=== PATIENT | female | born 1985 | race Caucasian/White ===

== ENCOUNTER 2025-10-18 07:32 | Outpatient (REF) | payer OTHER, SELFPAY ==
--- OUTSIDE RECORDS SUMMARY | 2025-05-13 10:00 | XMS_ITS ---
Author Organization [facility] Address [address] [address] Care Team Providers Care Non Destructive Testing Technician Name Role Phone Dominga Bullard Unavailable Unavailable Goran Wilson Unavailable [phone] ALLERGIES No Known Allergies REASON FOR VISIT rt hand Encounters Encounter Location Date Provider Diagnosis [place] [address] [facility] [address] [place] [address] [address] [place] [address] 05/13/2025 Goran Wilson PLAN OF TREATMENT No Information Progress Notes * Examination Category Sub-Category Detail Notes Category Not es GENERAL EXAMINATION General appearance: Within normal limits Skin: Exam of upper extrem ities and lower extremeties are within normal limits Neurologic: grossly intact Orientation: Alert and Oriented x 3 (Time, Place, Person) Mood: Within normal limits Gait: Without significant limitation Vascular: Exam is grossly norm al
--- NOTE | ~2025-10-18 | US_ITS ---
CLINICAL HISTORY: Pelvic pain US pelvis transabdominal and transvaginal with color Doppler Comparison: None Findings: Transabdominal scanning performed for overall anatomy. Transvaginal scanning performed for additional detail. LMP: 2 weeks ago Anteverted uterus, normal size and echotexture, measuring 8.0 x 4.2 x 5.5 cm. Normal endometrium, measuring 6.0 mm thickness Uterine fibroids: Fundal intramural 1.5 x 1.4 x 1.4 cm The right ovary measures, 3.1 x 2.7 x 3.3 cm. Heterogeneous echotexture throughout the right ovary with internal flow. Consider a follow-up ultrasound in 6 or 12 weeks time. The left ovary measures, 5.6 x 4.7 x 4.8 cm. Probable physiologic cyst measuring 5.0 x 3.8 x 4.4 cm. No adnexal masses or fluid collections. No free fluid. Impression: 1. Intramural fundal fibroid. Normal thickness endometrium. 2. Heterogeneous echotexture of the right ovary with internal flow. Follow-up ultrasound in 6 or 12 weeks time or contrast-enhanced MRI of the pelvis. This document has been electronically signed by: Anival Ortez MD on 10/18/2025 10:31:48
--- OUTSIDE RECORDS SUMMARY | 2025-10-18 07:35 | XMS_ITS | Clinical Summary ---
Author Organization [employer] [facility] Address [address] [place] [address] [address] Care Team Providers Care Can Line Examiner Name Role Phone Poc, Non Atrius Pcp Or Primary Care Provider Katharina vailable Allergies Active Allergy Reactions Criticality Noted Date Comments Penicillins 02/16/1986 PRESUMED ANTIBIOTIC RASH FROM AMOXICIL(Full Note in Review) Penicillins 05/30/1993 PENICILLIN Medications DEPAKOTE TABLET EC 125MG PO TAKE ONE TABLET WITH 250MG(TOTAL 375MG) TWICE DAILY. 60 2 03/09/2000 Active OTHER MEDICATION () 1 tab bid 120 2 09/21/2000 Active OTHER MEDICATION () 1 tab bid (take with 125mg tab for total 375mg bid) 120 2 10/30/2001 Active Active Problems Problem Noted Date Diagnosed Date Seizure 10/01/1998 Asthma 05/15/1994 Immunizations Immunization Administration Dates Next Due DTP Vaccine 07/23/1990, 7,01/31/1986,1984,1985 Hep B Vaccine (Unspecified Formulation) 07/15/1998 MMR Vaccine 01/06/1987 OPV,Trivalent (Admin before 02/26/2016) ,07/21/1987,1985,1984 TB Test 07/18/1986 Varicella Vaccine 09/16/1999,07/29/1999 Medical History Medical History Date Comments Otitis media 85 Converted Data Otitis media 01/31/86 Converted Data Otitis media 04/04/86 Converted Data Family History Medical History Relation Comments Other Other EPILEPSY - MAT U NCLE, NARCOLEPSY - MAT UNCLE. Relation Status Comments Other Social History Tobacco Use Types Packs/Day Years Used Date Smoking Tobacco: Never Assessed Comments Unknown Sex and Gender Information Value Date Recorded Sex Assigned at Not on file Legal Sex Female 12:33 PM EDT Gender Identity Not on file Sexual Orientation Not on file History Length Weight Head Circum Date/Time Gestation Age D/C Weight APGARs Delivery Method Feeding Method 20 (50.8 cm) 6 lb 4.5 oz (2.849 kg) 0 (0 cm) 1985 6 lb 3.5 oz 1min: 8 5mi n: 8 Labor Duration Days In Hospital Hospital Name Hospital Location Last Filed Vital Signs Vital Sign Reading Time Taken Comments Blood Pressure 108/60 11/08/2001 9:30 AM EST Pulse 72 11/08/2001 9:30 AM EST Temperature 36.9 C (98.5 F) 01/09/1999 1:00 PM EST Respiratory Rate - - Oxygen Saturation - - Inhaled Oxygen Concentration - - Weight 56.7 kg (125 lb) 11/08/2001 9:30 AM EST Height 166.4 cm (5' 5.5 ) 11/08/2001 9:30 AM EST Body Mass Index 20.48 11/08/2001 9:30 AM EST Plan of Treatment Health Maintenance Due Date Last Done Comments OFFICE VISIT 1985 DTAP/TDAP/TD VACCINE (6 - Tdap) 1996 07/23/1990, 07/21/1987, 01/31/1986, Additional history exists HEPATITIS B VACCINE (2 of 3 - 3-dose series) 08/12/1998 07/15/1998 HEP B INITIAL SCREENING 2003 HIV SCREENING 2003 LIPID SCREENING 2005 PAP: UPDATE W EDIT MODIFIERS 2006 * GLUCOSE OR A1C SCREENING - Q3YR 2020 HEP C SCREENING 2021 MAMMOGRAPHY: 1 YR 2025 PERIODIC HEALTH REVIEW 2025 COVID-19 Vaccine ( season) 2025 FLU SEASONAL (#1) 07/28/2025 RUBELLA Completed 01/06/1987 POLIO VACCINE Completed 07/23/1990, 06/28, 1985, Additional history exists HAEMOPHILUS INFLUENZA VACCINE Aged Out No longer eligible based on patient's age to complete this topic HEPATITIS A VACCINE Aged Out No longe r eligible based on patient's age to complete this topic PNEUMOCOCCAL VACCINE(S) Aged Out No l onger eligible based on patient's age to complete this topic RSV Vaccine Infant//toddler Aged Out No longer eligible based on patient's age to complete this topic Care Teams Can Line Examiner Relationship Specialty Start Date End Date Poc, Non Atrius Pcp Or PCP - General 12/13/1997
--- OUTSIDE RECORDS SUMMARY | 2025-10-18 07:35 | XMS_ITS | Clinical Summary ---
Author Organization [facility] Address [address] [place] [address] Care Team Providers Care Cleaner And Dyer Name Role Phone Dominga Shafer Primary Care Provider [phone] Allergies Active Allergy Reactions Criticality Noted Date Comments Penicillins Hives Medium 08/09/2020 Medications SPRINTEC 28 0.25-35 MG-MCG per tablet 06/11/2020 Active spironolactone (ALDACTONE) 50 MG tablet Take 1 tablet (50 mg total) by mouth daily 01/16/2025 Active etonogestrel (NEXPLANON) 68 MG IMPL Active Active Problems Problem Noted Date Diagnosed Date Dislocation, finger, interph alangeal joint, initial encounter 03/31/2025 Avulsion fracture of middle phalanx of finger Family History Medical History Relation Name Comments COPD Father Dementia Father Cancer Mother Diabetes Mother Hypertension Mother Relation Name Status Comments Father Mother Alive Social History Tobacco Use Types Packs/Day Years Used Date Smoking Tobacco: Never Smokeless Tobacco: Never Alcohol Use Standard Drinks/Week Comments Yes 0 (1 standard drink = 0.6 oz pur e alcohol) rarely Comments No Sex and Gender Information Value Date Recorded Sex Assigned at Female 03/27/2025 7:23 PM EDT Legal Sex Female 9:31 AM EDT Gender Identity Female 03/27/2025 7:23 PM EDT Sexual Orientation Straight 03/27/2025 7: 23 PM EDT Last Filed Vital Signs Vital Sign Reading Time Taken Comments Blood Pressure 142/82 03/27/2025 8:41 PM EDT Pulse 97 03/27/2025 8:41 PM EDT Temperature 36.7 C (98.1 F) 03/27/2025 8:41 PM EDT Respiratory Rate 16 03/27/2025 8:41 PM EDT Oxygen Saturation 100% 03/27/2025 8:41 PM EDT Inhaled Oxygen Concentration - - Weight 63.5 kg (140 lb) 03/27/2025 8:41 PM EDT Height 162.6 cm (5' 4 ) 03/27/2025 8:41 PM EDT Body Mass Index 24.03 03/27/2025 8:41 PM EDT Plan of Treatment Health Maintenance Due Date Last Done Comments Annual Physical 07/29/2000 07/29/1999 Hepatitis B Screening 2003 Pneumococcal Vaccines 0-49 yrs (includes High Risk) (1 of 2 - PCV) 2004 Breast Cancer Screening 2025 COVID-19 Vaccine (4 - 2024- season) 2025 03/10/2022, 03/11/2021, 02/18/2021 Influenza Vaccine (#1) 2025 DTaP,Tdap,and Td Vaccines (7 - Td or Tdap) 01/12/2031 01/12/2021, 07/23/1990, 07/21/1987, Additional history exists HIB Vaccines Aged Out No longer eligi ble based on patient's age to complete this topic Hepatitis A Vaccine Aged Out No longe r eligible based on patient's age to complete this topic Insurance [facility] Care Teams Cleaner And Dyer Relationship Specialty Start Date End Date Dominga Shafer [address] [place] [phone] PCP - General Internal Medicine 03/28/25
--- OUTSIDE RECORDS SUMMARY | 2025-10-18 07:35 | XMS_ITS | Clinical Summary ---
Author Organization [facility] (historical information prior to 08/30/2025 only) Address [address] [place] [address] Care Team Providers Care Section Repairer Name Role Phone Unavailable Primary Care Provider Unavailabl e Active Problems Problem Noted Date Diagnosed Date De Quervain's tenosynovitis 06/14/2018 Social History Tobacco Use Types Packs/Day Years Used Date Smoking Tobacco: Never Assessed Comments Unknown Sex and Gender Information Value Date Recorded Sex Assigned at Not on file Legal Sex Female 9:50 AM EDT Gender Identity Not on file Sexual Orientation Not on file Plan of Treatment Health Maintenance Due Date Last Done Comments Hepatitis C Screening 2003 Periodic Health Exam 2003 Tetanus Diphtheria and Pertu ssis Vaccines (TD and TDaP) (1 - Tdap) 2004 PAP Screening 2015 Breast Cancer Screening 2025 Influenza (Seasonal) 06/27/2025 HIB Vaccines Aged Out No longer eligi ble based on patient's age to complete this topic HPV Vaccines Aged Out No longer eligi ble based on patient's age to complete this topic Meningococcal Vaccine Aged Out No jeanine sergey eligible based on patient's age to complete this topic Pneumococcal Vaccine: Pediat rics (0 to 5 Years) and At-Risk Patients (6 to 64 Years) Aged Out No longer eligible b ased on patient's age to complete this topic
--- OUTSIDE RECORDS SUMMARY | 2025-10-18 07:35 | XMS_ITS | Clinical Summary ---
Author Organization [facility] Address [address] [place] [address] Care Team Providers Care Fixed Wing Aircraft Crew Chief Name Role Phone Unavailable Primary Care Provider Unavailabl e Allergies Active Allergy Reactions Criticality Noted Date Comments Penicillins Hives Medications lidocaine (LIDODERM) 5 % patch 1 PATCH TOPICAL DAILY 15 each 0 01/22/2021 Active Social History Tobacco Use Types Packs/Day Years Used Date Smoking Tobacco: Never Assessed Comments Unknown Sex and Gender Information Value Date Recorded Sex Assigned at Not on file Legal Sex Female 5:26 PM EST Gender Identity Not on file Sexual Orientation Not on file Last Filed Vital Signs Vital Sign Reading Time Taken Comments Blood Pressure - - Pulse - - Temperature - - Respiratory Rate - - Oxygen Saturation - - Inhaled Oxygen Concentration - - Weight 65.9 kg (145 lb 4.5 oz) 01/22/2021 5:18 P M EST Height 162.6 cm (5' 4 ) 01/22/2021 5:18 PM EST Body Mass Index 24.94 01/22/2021 5:18 PM EST Plan of Treatment Not on file
--- OUTSIDE RECORDS SUMMARY | 2025-10-18 07:35 | XMS_ITS | Encounter Summary ---
Author Organization [facility] Address [address] [place] [address] Care Team Providers Care Core Dropper Name Role Phone Dominga Shafer Primary Care Provider Reason for Visit * Reason Onset Date Comments DENI request for return to work note. 05/07/2025 Encounter Details Date Type Department Care Team ([facility] Contact Info) Description 05/07/2025 Telephone [facility] [address] [place] [id number] Mark Anthony Rios PA-C [address] [place] [address] DENI request for return to work note. Social History Tobacco Use Types Packs/Day Years [...] Orientation Straight 03/27/2025 7: 23 PM EDT documented as of this encounter Miscellaneous Notes * Telephone Encounter - Mark Anthony Rios PA-C - 05/07/2025 4:41 PM EDT I put a work note in chart and printed * Telephone Encounter - Erinn Last - 05/07/2025 2:18 PM EDT Patient is calling requesting a return to work note. 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 Once completed patient is asking if this note can please be sent to her MyChart. Call back [phone] documented in this encounter Plan of Treatment Not on file documented as of this encounter Visit Diagnoses Not on filedocumented in this encounter Care Teams Core Dropper Relationship Specialty Start Date End Date Dominga Shafer [address] [place] [phone] PCP - General Internal Medicine 03/28/25 documented as of this encounter
--- OUTSIDE RECORDS SUMMARY | 2025-10-18 07:35 | XMS_ITS | Patient Health Record ---
Author Organization [facility] Address [address] [facility] [address] [place] [address] Care Team Providers Care Director Of Instruction Name Role Phone Danicapaula Dominga Unavailable Unavailable Goran Wilson Unavailable [phone] ALLERGIES No Known Allergies REASON FOR REFERRAL No Information Encounters Encounter Location Date Provider Diagnosis [facility] [address] [facility] [address] [place] [address] 05/13/2025 Goran Wilson PLAN OF TREATMENT No Information Insurance Providers Payer Name Payer Address Payer Phone Subscriber Number Group Number Insured Name Patient Relationship to Insured Coverage Start Date Coverage End Date [employer] [place] [address] [place] [address] [id number] Shantel James Self - patient is the insured
== END 2025-10-18 07:33 | disposition home or self-care (01) ==
LOC: HO.US 07:32
PROVIDERS: Visit Provider Physician Assistant
DX: R10.32 Left lower quadrant pain (principal); R10.20 Pelvic and perineal pain unspecified side
CPT/HCPCS: 76830; 76856

== ENCOUNTER → 2025-10-18 07:44 | Outpatient (BNV) | payer OTHER, SELFPAY | PROVIDERS: Visit Provider Radiology Diagnostic Radiology | DX: D25.1 Intramural leiomyoma of uterus (principal); N83.9 Noninflammatory disorder of ovary, fallopian tube and broad ligament, unspecified | CPT/HCPCS: 76830; 76856 ==